=== PATIENT | male | born 1980 | race Caucasian/White ===

== ENCOUNTER 2022-02-14 07:08 | Day surgery (SDC) | payer OTHER ==
[~2022-02-14] VITALS: Ht 172.7 cm; Wt 106.1 kg
[2022-02-14] MEDS ORDERED: COLACE100 MG PO (10:24)
[2022-02-14] MEDS ORDERED: PERCOCET 5-3251 EACH PO (10:24)
[2022-02-14] MEDS ORDERED: ZIPSOR25 MG PO (10:24)
[2022-02-14] MEDS ORDERED: NEURONTIN300 MG PO (10:24)
== END 2022-02-14 15:36 | disposition home or self-care (01) ==
LOC: CIR.AMB 07:08
PROVIDERS: ATTEND Surgery
DX: A63.0 Anogenital (venereal) warts (principal); K62.89 Other specified diseases of anus and rectum; Z20.822 Contact with and (suspected) exposure to COVID-19

== ENCOUNTER 2022-10-17 06:21 | Day surgery (SDC) | payer OTHER ==
[~2022-10-17] VITALS: Ht 172.7 cm; Wt 99.8 kg
[~2022-10-17 06:21] MED LIST: COLACE100 MG PO; NEURONTIN300 MG PO; PERCOCET 5-3251 EACH PO; ZIPSOR25 MG PO
[2022-10-17] MEDS ORDERED: COLACE100 MG PO (12:59)
[2022-10-17] MEDS ORDERED: NEURONTIN300 MG PO (13:22)
[2022-10-17] MEDS ORDERED: TRAM1TAB98 PO (13:23)
== END 2022-10-17 13:30 | disposition home or self-care (01) ==
LOC: CIR.AMB 06:21
PROVIDERS: ATTEND Surgery
DX: K62.89 Other specified diseases of anus and rectum (principal); A63.0 Anogenital (venereal) warts; D12.9 Benign neoplasm of anus and anal canal; Z20.822 Contact with and (suspected) exposure to COVID-19